=== PATIENT | male | born 1975 | race Caucasian/White ===

== ENCOUNTER 2019-10-20 12:14 | Emergency (ER) | payer OTHER ==
[~2019-10-20] VITALS: Ht 188 cm; Wt 83.9 kg
[2019-10-20] MEDS ORDERED: IBUPROFEN 800800 M1 PO (14:11)
[2019-10-20] MEDS ORDERED: NORCO 5-325 TA1 EAC1 PO (14:11)
[2019-10-20 14:42] VITALS: BP 138/64
== END 2019-10-20 14:43 | disposition home or self-care (01) ==
LOC: M.ERS 12:14
DX: S90.01XA Contusion of right ankle, initial encounter (principal); M79.661 Pain in right lower leg; X50.0XXA Overexertion from strenuous movement or load, initial encounter; Y92.89 Other specified places as the place of occurrence of the external cause; Y93.89 Activity, other specified; Y99.8 Other external cause status